=== PATIENT | female | born 1970 | race African-American/Black ===

== ENCOUNTER 2016-09-30 11:14 | Emergency (ER) | payer MEDICAID ==
[2016-09-30 11:42] VITALS: BP 130/88
[2016-09-30] MEDS ORDERED: Take Home: Oseltamivir 75 MG Cap, 2 Cap Pack PO ONE (12:25)
--- NOTE | 2016-10-11 07:56 | ER ---
Date of Service: 09/30/2016 SUBJECTIVE: Donn presents to the emergency room with complaints of cough, sinus, rhinorrhea, and chest congestion. The patient states that she has been ill for approximately the past 48 hours. She states that she has not experienced any rash. She states that she has felt hot and cold, but states that she has not been checking her temperature. The patient denies any nausea or vomiting. PAST MEDICAL HISTORY: Hypertension. MEDICATIONS: 1. Carvedilol. 2. Cozaar. 3. Acetaminophen. ALLERGIES: NSAIDs. REVIEW OF SYSTEMS: General: Positive for chills, but has not been checking her temperature. HEENT: Positive for rhinorrhea and congestion. Respiratory: Complains of mild shortness of breath and cough. Cardiac: Denies any substernal chest pain. GI: No nausea, vomiting, or diarrhea. No melena, hematochezia, or hematemesis. : Denies any dysuria. Musculoskeletal: No myalgias or arthralgias. Neurologic: No fainting, blackouts, or lightheadedness. PHYSICAL EXAMINATION: General: This is a 46-year-old female patient in no acute distress. Vital Signs: Blood pressure is 130/88, pulse rate is 84, temperature is 36.6, respiratory rate is 16, O2 saturations 99%. Skin: Warm, pink, and dry. HEENT: Head is normocephalic, atraumatic. Mouth, oral mucosa is moist. Ears, TMs are clear. No erythema or exudate noted in the hypopharynx. Neck: Supple. No masses. There is no lymphadenopathy. Lungs: She does have some crackles noted throughout. They are also mildly diminished. Heart: Regular rate and rhythm. Abdomen: Soft, nontender. There is no hepatosplenomegaly noted. There are no masses noted. Extremities: Without edema. LABORATORY DATA: Influenza A and B swabs were obtained. She was positive for influenza A. Her group A strep was negative as was her culture. ASSESSMENT: Group B influenza. PLAN: The patient will be discharged. Tamiflu 75 mg twice daily for 5 days. Tylenol and ibuprofen for discomfort. Drink plenty of fluids. I advised her to stay off work until 24 hours after her last fever. She should also minimize contact with friends and family as well. All questions were answered. MWK: 10/10/2016 16:26:56 MODL: 10/10/2016 23:50:38 /[id number]
== END 2016-09-30 12:40 | disposition home or self-care (01) ==
LOC: VM.ED 11:14
DX: J10.1 Influenza due to other identified influenza virus with other respiratory manifestations (principal); I10 Essential (primary) hypertension; Z79.899 Other long term (current) drug therapy
CPT/HCPCS: 71020; 87081; 87804; 87880; 99284

== ENCOUNTER 2017-06-08 13:40 | Emergency (ER) | payer MEDICAID ==
--- NOTE | 2017-06-08 13:46 | EDM.PDOC ---
ED HPI GENERAL MEDICAL PROBLEM - General Chief Complaint: ENT Problem Stated Complaint: Sinus Pressure; headache; dry cough; runny nose Time Seen by Provider: 06/08/17 13:42 Source of Information: Reports: Patient, RN, RN Notes Reviewed History Limitations: Reports: No Limitations - History of Present Illness INITIAL COMMENTS - FREE TEXT/NARRATIVE: Patient presents the emergency room at [facility] complaining of sinus pressure and pain, dry nonproductive cough, and low-grade fever. The patient states that her symptoms began about 3 days ago. 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 The patient has tried [id number] cold and flu medication without any relief. The patient denies any eye or ear symptomatology. The patient complains of pain around the maxillary and ethmoid sinus areas. The patient denies any sore throat. The patient states she is trying to stay well-hydrated with good by mouth fluid intake. The patient denies any nausea vomiting or diarrhea. The patient is unsure if she has been exposed to influenza. The patient denies any chest pain. The patient feels somewhat short of breath but she states it's nothing unusual. The patient denies any focal neurological deficits. The patient states that she is draining a green discharge from the nose. Onset Date: 06/05/17 Headache Pain Score (Numeric/FACES): 7 - Related Data Allergies Allergy/AdvReac Type Severity Reaction Status Date / Time NSAIDS (Non-Steroidal Allergy Unknown Other Verified 06/08/17 14:09 Anti-Inflamma Home Meds: Home Meds Acetaminophen [Acetaminophen Extra Strength] 500 mg PO Q6H PRN 09/30/16 [History ] Carvedilol 25 mg PO DAILY 09/30/16 [History] Losartan [Cozaar] 100 mg PO DAILY 09/30/16 [History] methylPREDNISolone [Medrol] 4 mg PO ASDIRECTED 6 Days #1 dosepk 06/08/17 [Rx] Past Medical History HEENT History: Reports: Other (See Below) Other HEENT History: esophageal cancer Cardiovascular History: Reports: Hypertension Other Cardiovascular History: patient states that the cardiac medications are related to her esphageal disease Oncologic (Cancer) History: Reports: Esophageal - Past Surgical History HEENT Surgical History: Reports: Other (See Below) Oncologic Surgical History: Reports: Other (See Below) Social & Family History - Tobacco Use Smoking Status *Q: Never Smoker - Recreational Drug Use Recreational Drug Use: No ED ROS ENT - Review of Systems Review Of Systems: See Below Constitutional: Reports: Fever, Decreased Appetite. Denies: Chills, Weakness HEENT: Reports: Nose Pain, Rhinitis, Sinus Problem. Denies: Ear Pain, Eye Pain , Throat Pain, Throat Swelling Respiratory: Reports: Shortness of Breath, Cough. Denies: Wheezing, Sputum Cardiovascular: Denies: Chest Pain, Palpitations GI/Abdominal: Denies: Abdominal Pain, Nausea, Vomiting Skin: Reports: No Symptoms Neurological: Reports: No Symptoms, Headache. Denies: Dizziness ED EXAM, ENT - Physical Exam Exam: See Below Exam Limited By: No Limitations General Appearance: Alert, No Apparent Distress Eye Exam: Bilateral Eye: Normal Inspection, PERRL Ears: Normal External Exam, Normal Canal, Normal TMs Nose: Nasal Discharge, Nasal Tenderness, Other (sinus tenderness to percussion over the bilateral maxiallary sinus regions) Mouth/Throat: Normal Inspection, Normal Oropharynx Neck: Supple Course - Vital Signs Last Recorded V/S: Last Vital Signs Temp 37.2 C 06/08/17 13:45 Pulse 61 06/08/17 13:45 Resp 16 06/08/17 13:45 BP 169/91 H 06/08/17 13:45 Pulse Ox 99 06/08/17 13:45 - Orders/Labs/Meds Orders: Active Orders 24 hr Category Date Time Status Chest 2V [CR] Stat Exams 06/08/17 13:57 Taken Triamcinolone Acetonide [Kenalog-40] Med 06/08/17 14:46 Once 80 mg IM ONETIME ONE Labs: Laboratory Tests 06/08/17 06/08/17 Range/Units 14:24 14:24 WBC 7.7 (4.0-10.0) x10^3/uL RBC 4.29 (4.00-5.50) x10^6/uL Hgb 11.5 L (12.0-16.0) g/dL Hct 35.4 (33.0-47.0) % MCV 82.5 (78.0-93.0) fL MCH 26.8 (26.0-32.0) pg MCHC 32.5 (32.0-36.0) g/dL RDW Coeff of Clint 15.6 H (10.0-15.0) % Plt Count 205 (130-400) x10^3/uL Neut % (Auto) 52.8 (50.0-80.0) % Lymph % (Auto) 34.7 (25.0-50.0) % [place] % (Auto) 11.4 H (2.0-11.0) % Eos % (Auto) 0.8 (0.0-4.0) % Baso % (Auto) 0.3 (0.2-1.2) % Sodium 140 (136-145) mmol/L Potassium 3.7 (3.5-5.1) mmol/L Chloride 105 (98-107) mmol/L Carbon Dioxide 21 (21-32) mmol/L BUN 10 (7-18) mg/dL Creatinine 1.0 (0.55-1.02) mg/dL Est Cr Clr Drug Dosing 64.60 mL/min Estimated GFR (MDRD) > 60 Glucose 92 (74-106) mg/dL Calcium 9.2 (8.5-10.1) mg/dL - Radiology Interpretation Free Text/Narrative:: CXR: No new findings; see scanned document in EMR Departure - Departure Time of Disposition: 14:46 Disposition: Home, Self-Care 01 Condition: Good Clinical Impression: Acute pansinusitis, unspecified Qualifiers: Recurrence: non-recurrent Qualified Code(s): J01.40 - Acute pansinusitis, unspecified Upper respiratory infection Qualifiers: URI type: unspecified URI Qualified Code(s): J06.9 - Acute upper respiratory infection, unspecified Rhinitis Qualifiers: Chronicity: acute Allergic rhinitis trigger: unspecified Allergic rhinitis seasonality: non-seasonal - Discharge Information Prescriptions: methylPREDNISolone [Medrol] 4 mg PO ASDIRECTED 6 Days #1 dosepk Instructions: Sinus Headache, Sinusitis, Adult Referrals: Shaniqua Abernathy DO [Primary Care Provider] - Forms: ED Department Discharge Additional Instructions: 1. Stay well hydrated and rest 2. Take medications for the full coarse, even if you are feeling better 3. Blood tests and xray were normal today 4. May alternate Tylenol/Advil as needed 5. Avoid using any over the counter products while on the steroids 6. No antibiotics are used to treat your symptoms 7. See your Primary as symptoms warrant 8. Call with any questions/concerns - Problem List Review Problem List Initiated/Reviewed/Updated: Yes - My Orders Last 24 Hours: My Active Orders 06/08/17 13:57 Chest 2V [CR] Stat 06/08/17 14:46 Triamcinolone Acetonide [Kenalog-40] 80 mg IM ONETIME ONE - Assessment/Plan Last 24 Hours: My Active Orders 06/08/17 13:57 Chest 2V [CR] Stat 06/08/17 14:46 Triamcinolone Acetonide [Kenalog-40] 80 mg IM ONETIME ONE
[2017-06-08 14:14] VITALS: BP 169/91
[2017-06-08 14:43] LABS: CHLORIDE,CL 105 mmol/L (98-107); SODIUM,NA 140 mmol/L (136-145)
[2017-06-08] MEDS ORDERED: Triamcinolone Acetonide 40 MG/ML 1 ML MDV IM ONE (14:46)
== END 2017-06-08 15:00 | disposition home or self-care (01) ==
LOC: VM.ED 13:40
DX: J01.40 Acute pansinusitis, unspecified (principal); J06.9 Acute upper respiratory infection, unspecified; J00 Acute nasopharyngitis [common cold]; I10 Essential (primary) hypertension; Z79.899 Other long term (current) drug therapy; Z88.8 Allergy status to other drugs, medicaments and biological substances
CPT/HCPCS: 36415; 71046; 80048; 85025; 87804; 96372; 99283; J3301

== ENCOUNTER 2018-08-16 10:56 | Emergency (ER) | payer MEDICAID ==
[2018-08-16] MEDS ORDERED: Sodium Chloride 0.9% 10 ML Syringe FLUSH PRN (11:34)
[2018-08-16] MEDS ORDERED: Ondansetron 4 MG/2 ML SDV IVPUSH ONE (11:36)
[2018-08-16] MEDS ORDERED: Lactated Ringers 1,000 ML IV ONE (11:36)
[2018-08-16 12:46] LABS: ANION GAP 14.5 mmol/L (10-20); CHLORIDE,CL 108 mmol/L (98-107); SODIUM,NA 142 mmol/L (136-145)
--- NOTE | 2018-08-16 12:57 | EDM.PDOC ---
ED HPI GENERAL MEDICAL PROBLEM - General Chief Complaint: Gastrointestinal Problem Stated Complaint: DIARRHEA COUGHING VOMITING Time Seen by Provider: 08/16/18 11:25 Source of Information: Reports: Patient History Limitations: Reports: No Limitations - History of Present Illness INITIAL COMMENTS - FREE TEXT/NARRATIVE: Pt. presents to ER with complaints of nausea, vomiting, or diarrhea. She states that the symptoms started several days ago. No fever or chills. No chest pain or shortness of breath. Pt. states that she has been taking zofran but has not been taking any immodium. No focal abdominal pain. Denies any dysuria. No cough, congestion, or rhinorrhea. No melena or hematochezia. She states that she has been around several coworkers and family members who have recently been ill. Onset: Today Onset Date: 08/16/18 Location: Reports: Abdomen Associated Symptoms: Reports: Nausea/Vomiting, Other (diarrhea) Abdominal Pain Score (Numeric/FACES): 7 - Related Data Allergies Allergy/AdvReac Type Severity Reaction Status Date / Time NSAIDS (Non-Steroidal Allergy Unknown Other Verified 08/16/18 11:32 Anti-Inflamma aspirin Allergy Other Verified 08/16/18 11:32 Home Meds: Home Meds Carvedilol 25 mg PO BIDMEALS 09/30/16 [History] Losartan [Cozaar] 100 mg PO DAILY 09/30/16 [History] Zolpidem Tartrate [Ambien] 10 mg PO BEDTIME PRN 03/26/18 [History] Past Medical History HEENT History: Reports: Other (See Below) Other HEENT History: esophageal cancer Cardiovascular History: Reports: Hypertension Other Cardiovascular History: patient states that the cardiac medications are related to her esphageal disease Gastrointestinal History: Reports: GI Bleed Oncologic (Cancer) History: Reports: Esophageal - Past Surgical History HEENT Surgical History: Reports: Other (See Below) Oncologic Surgical History: Reports: Other (See Below) Social & Family History - Tobacco Use Smoking Status *Q: Never Smoker - Recreational Drug Use Recreational Drug Use: No ED ROS GENERAL - Review of Systems Review Of Systems: See Below Constitutional: Reports: No Symptoms HEENT: Reports: No Symptoms Respiratory: Reports: No Symptoms Cardiovascular: Reports: No Symptoms Endocrine: Reports: No Symptoms GI/Abdominal: Reports: Diarrhea, Nausea. Denies: Black Stool, Bloody Stool, Constipation, Vomiting : Reports: No Symptoms Musculoskeletal: Reports: No Symptoms Skin: Reports: No Symptoms Neurological: Reports: No Symptoms Psychiatric: Reports: No Symptoms Hematologic/Lymphatic: Reports: No Symptoms Immunologic: Reports: No Symptoms ED EXAM, GENERAL - Physical Exam Exam: See Below Exam Limited By: No Limitations General Appearance: Alert, WD/WN, No Apparent Distress Throat/Mouth: Normal Inspection, Normal Lips, Normal Teeth, Normal Gums, Normal Oropharynx, Normal Voice, No Airway Compromise Head: Atraumatic, Normocephalic Neck: Normal Inspection, Supple, Non-Tender, Full Range of Motion Respiratory/Chest: No Respiratory Distress, Lungs Clear, Normal Breath Sounds, No Accessory Muscle Use, Chest Non-Tender Cardiovascular: Normal Peripheral Pulses, Regular Rate, Rhythm, No Edema, No Gallop, No JVD, No Murmur, No Rub GI/Abdominal: Normal Bowel Sounds, Soft, Non-Tender, No Organomegaly, No Distention, No Mass (Female) Exam: Deferred Rectal (Female) Exam: Deferred Back Exam: Normal Inspection, Full Range of Motion Extremities: Normal Inspection, Normal Range of Motion, Non-Tender, Normal Capillary Refill, No Pedal Edema Neurological: Alert, Oriented, CN II-XII Intact, Normal Cognition, Normal Gait, Normal Reflexes, No Motor/Sensory Deficits Psychiatric: Normal Affect, Normal Mood Skin Exam: Warm, Dry, Intact, Normal Color, No Rash Lymphatic: No Adenopathy Course - Vital Signs Last Recorded V/S: Last Vital Signs Temp 36.6 C 08/16/18 11:25 Pulse 89 08/16/18 11:25 Resp 16 08/16/18 11:25 BP 148/97 H 08/16/18 11:25 Pulse Ox 98 08/16/18 11:25 - Orders/Labs/Meds Orders: Active Orders 24 hr Category Date Time Status Sodium Chloride 0.9% [Saline Flush] Med 08/16/18 11:34 Active 10 ml FLUSH ASDIRECTED PRN Peripheral IV Insertion Adult [OM.PC] Routine Oth 08/16/18 11:35 Ordered Medication Orders Sodium Chloride (Saline Flush) 10 ml FLUSH ASDIRECTED PRN PRN Reason: Keep Vein Open Labs: Laboratory Tests 08/16/18 08/16/18 08/16/18 Range/Units 12:00 12:20 12:20 WBC 7.6 (4.0-10.0) x10^3/uL RBC 4.67 (4.00-5.50) x10^6/uL Hgb 14.5 D (12.0-16.0) g/dL Hct 42.6 (33.0-47.0) % MCV 91.2 D (78.0-93.0) fL MCH 31.0 (26.0-32.0) pg MCHC 34.0 (32.0-36.0) g/dL RDW Coeff of Clint 13.1 (10.0-15.0) % Plt Count 113 L D (130-400) x10^3/uL Neut % (Auto) 55.6 (50.0-80.0) % Lymph % (Auto) 35.1 (25.0-50.0) % [place] % (Auto) 8.7 (2.0-11.0) % Eos % (Auto) 0.5 (0.0-4.0) % Baso % (Auto) 0.1 L (0.2-1.2) % PT 10.4 (9.6-11.4) SEC INR 1.0 L (2.0-3.5) Sodium 142 (136-145) mmol/L Potassium 3.5 (3.5-5.1) mmol/L Chloride 108 H (98-107) mmol/L Carbon Dioxide 23 (21-32) mmol/L Anion Gap 14.5 (10-20) mmol/L BUN 6 L (7-18) mg/dL Creatinine 0.8 (0.55-1.02) mg/dL Est Cr Clr Drug Dosing 79.91 mL/min Estimated GFR (MDRD) > 60 Glucose 83 (74-106) mg/dL Lactic Acid (0.4-2.0) mmol/L Calcium 8.5 (8.5-10.1) mg/dL Corrected Calcium 9.22 (8.5-10.1) mg/dL Total Bilirubin 0.3 (0.2-1.0) mg/dL AST 17 (15-37) U/L ALT 22 (14-59) U/L Alkaline Phosphatase 51 (46-116) U/L C-Reactive Protein < 0.2 (<=0.9) mg/dL Total Protein 6.6 (6.4-8.2) g/dL Albumin 3.1 L (3.4-5.0) g/dL Globulin 3.5 Albumin/Globulin Ratio 0.89 Amylase 54 (25-115) U/L Lipase 144 (73-393) U/L 08/16/18 Range/Units 12:20 WBC (4.0-10.0) x10^3/uL RBC (4.00-5.50) x10^6/uL Hgb (12.0-16.0) g/dL Hct (33.0-47.0) % MCV (78.0-93.0) fL MCH (26.0-32.0) pg MCHC (32.0-36.0) g/dL RDW Coeff of Clint (10.0-15.0) % Plt Count (130-400) x10^3/uL Neut % (Auto) (50.0-80.0) % Lymph % (Auto) (25.0-50.0) % [place] % (Auto) (2.0-11.0) % Eos % (Auto) (0.0-4.0) % Baso % (Auto) (0.2-1.2) % PT (9.6-11.4) SEC INR (2.0-3.5) Sodium (136-145) mmol/L Potassium (3.5-5.1) mmol/L Chloride (98-107) mmol/L Carbon Dioxide (21-32) mmol/L Anion Gap (10-20) mmol/L BUN (7-18) mg/dL Creatinine (0.55-1.02) mg/dL Est Cr Clr Drug Dosing mL/min Estimated GFR (MDRD) Glucose (74-106) mg/dL Lactic Acid 1.4 (0.4-2.0) mmol/L Calcium (8.5-10.1) mg/dL Corrected Calcium (8.5-10.1) mg/dL Total Bilirubin (0.2-1.0) mg/dL AST (15-37) U/L ALT (14-59) U/L Alkaline Phosphatase (46-116) U/L C-Reactive Protein (<=0.9) mg/dL Total Protein (6.4-8.2) g/dL Albumin (3.4-5.0) g/dL Globulin Albumin/Globulin Ratio Amylase (25-115) U/L Lipase (73-393) U/L Meds: Medications Generic Name Dose Route Start Last Admin Trade Name Chelsea PRN Reason Stop Dose Admin Sodium Chloride 10 ml 08/16/18 11:34 Saline Flush FLUSH ASDIRECTED PRN Keep Vein Open Discontinued Medications Generic Name Dose Route Start Last Admin Trade Name Frealexia PRN Reason Stop Dose Admin Lactated Ringer's 1,000 mls @ 1,000 mls/hr 08/16/18 11:36 08/16/18 12:04 Ringers, Lactated IV 08/16/18 12:35 1,000 mls/hr ONETIME ONE Administration Ondansetron HCl 4 mg 08/16/18 11:36 08/16/18 12:07 Zofran IVPUSH 08/16/18 11:37 4 mg ONETIME ONE Administration - Re-Assessments/Exams Free Text/Narrative Re-Assessment/Exam: Pt. was given 1000ml lactated ringers and zofran 4mg IV for nausea/vomiting. She remained stable in my care in ER. Departure - Departure Time of Disposition: 12:58 Disposition: Home, Self-Care 01 Condition: Good Clinical Impression: Gastroenteritis - Discharge Information Instructions: Viral Gastroenteritis, Adult Referrals: PCP,Unknown [Primary Care Provider] - Forms: ED Department Discharge Additional Instructions: Continue with Zofran as needed for nausea. Immodium over the counter as needed for nausea. Drink plenty of fluids. Tylenol and ibuprofen for fever/discomfort. - My Orders Last 24 Hours: My Active Orders 08/16/18 11:34 Sodium Chloride 0.9% [Saline Flush] 10 ml FLUSH ASDIRECTED PRN 08/16/18 11:35 Peripheral IV Insertion Adult [OM.PC] Routine - Assessment/Plan Last 24 Hours: My Active Orders 08/16/18 11:34 Sodium Chloride 0.9% [Saline Flush] 10 ml FLUSH ASDIRECTED PRN 08/16/18 11:35 Peripheral IV Insertion Adult [OM.PC] Routine Plan: Continue with Zofran as needed for nausea. Immodium over the counter as needed for nausea. Drink plenty of fluids. Tylenol and ibuprofen for fever/discomfort.
[2018-08-17 11:10] VITALS: BP 136/78
== END 2018-08-16 13:30 | disposition home or self-care (01) ==
LOC: VM.ED 10:56
DX: K52.9 Noninfective gastroenteritis and colitis, unspecified (principal); I10 Essential (primary) hypertension; Z79.899 Other long term (current) drug therapy; Z88.8 Allergy status to other drugs, medicaments and biological substances; Z88.6 Allergy status to analgesic agent
CPT/HCPCS: 36415; 80053; 82150; 83605; 83690; 85025; 85610; 86140; 96361; 96374; 99283; J2405; J7120

== ENCOUNTER 2018-09-23 08:41 | Emergency (ER) | payer MEDICAID ==
[2018-09-23 09:13] VITALS: BP 166/106
[2018-09-23 10:06] LABS: CHLORIDE,CL 105 mmol/L (98-107); SODIUM,NA 140 mmol/L (136-145)
[2018-09-23 10:08] LABS: ANION GAP 12.8 mmol/L (10-20)
--- NOTE | 2018-09-23 10:14 | CR ---
[id number] RAD/RAD Chest PA And Lateral EXAM: FRONTAL AND LATERAL CHEST INDICATION: Shortness of breath, family history of hypertrophic cardiomyopathy. COMPARISON: June 08, 2017. DISCUSSION: Heart is mildly enlarged without evidence of congestive heart failure. Stable mild to moderate elevation of the left hemidiaphragm with associated left base volume loss. Surgical clips overlie the right hilum. IMPRESSION: 1. Cardiomegaly without evidence of congestive heart failure. Nilay Cronin MD 09/23/18 1012 Thank you for allowing us to participate in the care of your patient.
--- NOTE | 2018-09-23 10:15 | EDM.PDOC ---
ED HPI GENERAL MEDICAL PROBLEM - General Chief Complaint: Respiratory Problem Stated Complaint: SHORTNESS BREATH Time Seen by Provider: 09/23/18 09:08 Source of Information: Reports: Patient History Limitations: Reports: No Limitations - History of Present Illness INITIAL COMMENTS - FREE TEXT/NARRATIVE: Patient comes in with complaints of cough since Sunday. No fevers, no chills. States she feels like she is choking. No chest pain, no SOB. Denies any abdominal pain, nausea, vomiting, blood in her urine or her stool. Does take losartan and carvedilol for blood pressure and has a familial history of hypertrophic cardiomyopathy, though she herself states she does not have this. She has been having regular echocardiograms every 3 years. Last was 2 years ago as stated by the patient. Onset: Today, Sudden Duration: Intermittent Severity: Moderate Improves with: Reports: None Worsens with: Reports: Breathing Associated Symptoms: Reports: Cough Headache Pain Score (Numeric/FACES): 6 - Related Data Allergies Allergy/AdvReac Type Severity Reaction Status Date / Time NSAIDS (Non-Steroidal Allergy Unknown Other Verified 09/23/18 09:04 Anti-Inflamma aspirin Allergy Other Verified 09/23/18 09:04 Home Meds: Home Meds Carvedilol 25 mg PO BIDMEALS 09/30/16 [History] Losartan [Cozaar] 100 mg PO DAILY 09/30/16 [History] Zolpidem Tartrate [Ambien] 10 mg PO BEDTIME PRN 03/26/18 [History] Past Medical History HEENT History: Reports: Other (See Below) Other HEENT History: esophageal cancer Cardiovascular History: Reports: Hypertension Other Cardiovascular History: patient states that the cardiac medications are related to her esphageal disease Gastrointestinal History: Reports: GI Bleed Oncologic (Cancer) History: Reports: Esophageal - Past Surgical History HEENT Surgical History: Reports: Other (See Below) Oncologic Surgical History: Reports: Other (See Below) Social & Family History - Tobacco Use Smoking Status *Q: Never Smoker - Alcohol Use Days Per Week of Alcohol Use: 1 Number of Drinks Per Day: 2 Total Drinks Per Week: 2 - Recreational Drug Use Recreational Drug Use: No ED ROS GENERAL - Review of Systems Review Of Systems: See Below Constitutional: Reports: No Symptoms HEENT: Reports: Other (feels like she is "choking") Respiratory: Reports: Cough Cardiovascular: Reports: No Symptoms Endocrine: Reports: No Symptoms GI/Abdominal: Reports: No Symptoms : Reports: No Symptoms Musculoskeletal: Reports: No Symptoms Skin: Reports: No Symptoms Neurological: Reports: No Symptoms Psychiatric: Reports: No Symptoms Hematologic/Lymphatic: Reports: No Symptoms Immunologic: Reports: No Symptoms ED EXAM, GENERAL - Physical Exam Exam: See Below Exam Limited By: No Limitations General Appearance: Alert, WD/WN, No Apparent Distress Eye Exam: Bilateral Eye: EOMI, Normal Inspection Ears: Normal External Exam, Normal Canal, Hearing Grossly Normal, Normal TMs Nose: Normal Inspection, Normal Mucosa, No Blood Throat/Mouth: Normal Inspection, Normal Lips, Normal Teeth, Normal Gums, Normal Oropharynx, Normal Voice, No Airway Compromise Head: Atraumatic, Normocephalic Neck: Lymphadenopathy (L), Lymphadenopathy (R) Respiratory/Chest: No Respiratory Distress, No Accessory Muscle Use, Rales ( left lower) Cardiovascular: Normal Peripheral Pulses, Regular Rate, Rhythm, No Edema, No Gallop, No JVD, No Murmur, No Rub GI/Abdominal: Normal Bowel Sounds, Soft, Non-Tender, No Organomegaly, No Distention, No Abnormal Bruit, No Mass Back Exam: Normal Inspection, Full Range of Motion, NT Extremities: Normal Inspection, Normal Range of Motion, Non-Tender, Normal Capillary Refill, No Pedal Edema Neurological: Alert, Oriented, CN II-XII Intact, Normal Cognition, Normal Gait, Normal Reflexes, No Motor/Sensory Deficits Psychiatric: Normal Affect, Normal Mood Skin Exam: Warm, Dry, Intact, Normal Color, No Rash Lymphatic: Adenopathy (bilateral anterior cerviacl lymphadenopathy) Course - Vital Signs Last Recorded V/S: Last Vital Signs Temp 36.3 C 09/23/18 08:50 Pulse 87 09/23/18 08:50 Resp 18 09/23/18 08:50 BP 166/106 H 09/23/18 08:50 Pulse Ox 97 09/23/18 08:50 - Orders/Labs/Meds Orders: Active Orders 24 hr Category Date Time Status EKG 12 Lead [EKG Documentation Completion] [RC] STAT Care 09/23/18 09:14 Active RT Aerosol Therapy [RC] ASDIRECTED Care 09/23/18 10:23 Active CULTURE STREP A CONFIRMATION [RM] Stat Lab 09/23/18 09:20 Results STREP SCRN A RAPID W CULT CONF [RM] Stat Lab 09/23/18 09:20 Results Labs: Laboratory Tests 09/23/18 09/23/18 09/23/18 Range/Units 09:32 09:32 09:32 WBC 5.0 (4.0-10.0) x10^3/uL RBC 4.47 (4.00-5.50) x10^6/uL Hgb 14.3 (12.0-16.0) g/dL Hct 42.6 (33.0-47.0) % MCV 95.3 H D (78.0-93.0) fL MCH 32.0 (26.0-32.0) pg MCHC 33.6 (32.0-36.0) g/dL RDW Coeff of Clint 12.8 (10.0-15.0) % Plt Count 164 (130-400) x10^3/uL Add Manual Diff Yes Neutrophils % (Manual) 54 (50-80) % Band Neutrophils % 5 (0-6) % Lymphocytes % (Manual) 32 (25-50) % Monocytes % (Manual) 6 (2-11) % Eosinophils % (Manual) 3 (0-4) % Platelet Estimate Adequate PT 9.9 L (10.0-12.8) SEC INR 0.9 L (2.0-3.5) Sodium 140 (136-145) mmol/L Potassium 3.8 (3.5-5.1) mmol/L Chloride 105 (98-107) mmol/L Carbon Dioxide 26 (21-32) mmol/L Anion Gap 12.8 (10-20) mmol/L BUN 9 (7-18) mg/dL Creatinine 0.8 (0.55-1.02) mg/dL Est Cr Clr Drug Dosing 82.26 mL/min Estimated GFR (MDRD) > 60 Glucose 87 (74-106) mg/dL Calcium 8.6 (8.5-10.1) mg/dL Corrected Calcium 8.84 (8.5-10.1) mg/dL Total Bilirubin 0.3 (0.2-1.0) mg/dL AST 28 (15-37) U/L ALT 28 (14-59) U/L Alkaline Phosphatase 67 (46-116) U/L Troponin I 0.039 (<=0.056) ng/mL NT-Pro-B Natriuret Pep 304 H (<=125) pg/mL Total Protein 7.7 (6.4-8.2) g/dL Albumin 3.7 (3.4-5.0) g/dL Globulin 4.0 Albumin/Globulin Ratio 0.93 Meds: Medications Discontinued Medications Generic Name Dose Route Start Last Admin Trade Name Freq PRN Reason Stop Dose Admin Albuterol/Ipratropium 3 ml 09/23/18 10:23 Duoneb 3.0-0.5 Mg/3 Ml NEB 09/23/18 10:24 ONETIME ONE Dexamethasone 8 mg 09/23/18 10:23 Dexamethasone IM 09/23/18 10:24 ONETIME ONE - Radiology Interpretation Free Text/Narrative:: X-ray and labwork does not indicate acute cardiac event Departure - Departure Time of Disposition: 11:01 Disposition: Home, Self-Care 01 Condition: Good Clinical Impression: Upper respiratory infection Qualifiers: URI type: unspecified URI Qualified Code(s): J06.9 - Acute upper respiratory infection, unspecified - Discharge Information *PRESCRIPTION DRUG MONITORING PROGRAM REVIEWED*: Not Applicable *COPY OF PRESCRIPTION DRUG MONITORING REPORT IN PATIENT LEEROY: Not Applicable Instructions: Upper Respiratory Infection, Adult, [id number] Referrals: Shaniqua Abernathy, [Primary Care Provider] - Forms: ED Department Discharge Additional Instructions: Plan 1. Take the medrol dose pack as directed on the packaging 2. Negative influenza and strep. We do culture these and if positive we will let you know. 3. Your Pro-BNP which is a heart failure indicator was slightly elevated at 304. Let your primary doctor know this number. 4. Your x-ray did show an enlargement of your heart. These images will be sent to them for their records and availability. 5. Your labwork and tests at this time do not indicate a bacterial infection. As such antibiotics are not indicated at this time. 6. Make sure to return or go to the clinic if your symptoms worsen or last longer than 7-10 days. 7. Please call with any questions or concerns ED Communication - ED Communication Date/Time Date: 09/23/18 Time Called: 10:59 - Discussed Case With (1) Discussed Case With (1): Other (Dr. Bui was consulted regarding EKG t-wave inversions. These were present on 2015 EKG they have on file. Not acute.) - Problem List & Annotations (1) Upper respiratory infection SNOMED Code(s): 45996362 Code(s): J06.9 - ACUTE UPPER RESPIRATORY INFECTION, UNSPECIFIED Status: Acute Priority: Low Current Visit: Yes Qualifiers: URI type: unspecified URI Qualified Code(s): J06.9 - Acute upper respiratory infection, unspecified - Problem List Review Problem List Initiated/Reviewed/Updated: Yes - My Orders Last 24 Hours: My Active Orders 09/23/18 09:14 EKG 12 Lead [EKG Documentation Completion] [RC] STAT 09/23/18 09:20 CULTURE STREP A CONFIRMATION [RM] Stat STREP SCRN A RAPID W CULT CONF [RM] Stat 09/23/18 10:23 RT Aerosol Therapy [RC] ASDIRECTED - Assessment/Plan Last 24 Hours: My Active Orders 09/23/18 09:14 EKG 12 Lead [EKG Documentation Completion] [RC] STAT 09/23/18 09:20 CULTURE STREP A CONFIRMATION [RM] Stat STREP SCRN A RAPID W CULT CONF [RM] Stat 09/23/18 10:23 RT Aerosol Therapy [RC] ASDIRECTED Assessment:: viral upper respiratory infection Plan: Plan 1. Take the medrol dose pack as directed on the packaging 2. Negative influenza and strep. We do culture these and if positive we will let you know. 3. Your Pro-BNP which is a heart failure indicator was slightly elevated at 304. Let your primary doctor know this number. 4. Your x-ray did show an enlargement of your heart. These images will be sent to them for their records and availability. 5. Your labwork and tests at this time do not indicate a bacterial infection. As such antibiotics are not indicated at this time. 6. Make sure to return or go to the clinic if your symptoms worsen or last longer than 7-10 days. 7. Please call with any questions or concerns
[2018-09-23] MEDS ORDERED: Albuterol/Ipratropium 3.0-0.5 MG/3 ML Neb Soln NEB ONE (10:23)
[2018-09-23] MEDS ORDERED: Dexamethasone 4 MG/ML SDV IM ONE (10:23)
== END 2018-09-23 11:08 | disposition home or self-care (01) ==
LOC: VM.ED 08:41
DX: J06.9 Acute upper respiratory infection, unspecified (principal); I10 Essential (primary) hypertension; Z79.899 Other long term (current) drug therapy
CPT/HCPCS: 36415; 71046; 80053; 83880; 84484; 85025; 85610; 87081; 87804; 87880; 93005; 94640; 96372; 99284; J1100; J7620-GY

== ENCOUNTER 2019-02-19 04:34 | Emergency (ER) | payer MEDICAID ==
[2019-02-19 04:46] VITALS: BP 162/106; PULSE 72
[2019-02-19] MEDS ORDERED: Sodium Chloride 0.9% 1,000 ML IV ONE (05:14)
[2019-02-19] MEDS ORDERED: Ketorolac 30 MG/ML SDV IVPUSH ONE (05:14)
[2019-02-19] MEDS ORDERED: Sodium Chloride 0.9% 10 ML Syringe FLUSH PRN (05:17)
[2019-02-19] MEDS: Ondansetron 4 MG/2 ML SDV IVPUSH ONE ×2 (05:18→06:08)
--- NOTE | 2019-02-19 05:22 | EDM.PDOC ---
ED HPI GENERAL MEDICAL PROBLEM - General Chief Complaint: General Stated Complaint: Dizzy, Vomiting, Heart Racing Time Seen by Provider: 02/19/19 05:09 Source of Information: Reports: Patient, RN History Limitations: Reports: No Limitations - History of Present Illness INITIAL COMMENTS - FREE TEXT/NARRATIVE: Patient presents to the ED at [facility] for the evaluation of a headache, nausea, dizziness, and vomiting. She states her symptoms started yesterday. She is not sure how my times she vomited. No recent travel. No change with any medications. No close contacts with similar symptoms. No chest pain or SOB. Denies any URI symptoms. She states she is trying to stay well hydrated with good PO fluid intake. She states she felt at one point, her heart "was racing very fast." No history of any cardiac problems outside of HTN. No pulmonary history. Patient does not smoke. She denies any fevers or chills. No focal neurological problems. Patient states her headache is similar to previous headaches. Onset Date: 02/18/19 Headache Pain Score (Numeric/FACES): 10 - Related Data Allergies Allergy/AdvReac Type Severity Reaction Status Date / Time NSAIDS (Non-Steroidal Allergy Unknown Other Verified 02/19/19 04:43 Anti-Inflamma aspirin Allergy Other Verified 02/19/19 04:42 Home Meds: Home Meds Carvedilol 25 mg PO BIDMEALS 09/30/16 [History] Losartan [Cozaar] 100 mg PO DAILY 09/30/16 [History] Zolpidem Tartrate [Ambien] 10 mg PO BEDTIME PRN 03/26/18 [History] Ondansetron HCl [Zofran] 4 mg SL Q8H PRN #15 tablet 02/19/19 [Rx] Past Medical History HEENT History: Reports: Other (See Below) Other HEENT History: esophageal cancer Cardiovascular History: Reports: Hypertension Other Cardiovascular History: patient states that the cardiac medications are related to her esphageal disease Gastrointestinal History: Reports: GI Bleed Oncologic (Cancer) History: Reports: Esophageal - Past Surgical History HEENT Surgical History: Reports: Other (See Below) Oncologic Surgical History: Reports: Other (See Below) Social & Family History - Tobacco Use Smoking Status *Q: Never Smoker - Recreational Drug Use Recreational Drug Use: No ED ROS GENERAL - Review of Systems Review Of Systems: See Below Constitutional: Denies: Fever, Chills Respiratory: Denies: Shortness of Breath, Cough Cardiovascular: Reports: Other ("felt like heart was racing"). Denies: Chest Pain, Palpitations GI/Abdominal: Reports: Nausea, Vomiting. Denies: Abdominal Pain, Diarrhea Skin: Reports: No Symptoms Neurological: Reports: Dizziness, Headache. Denies: Numbness, Paresthesia, Tingling, Weakness ED EXAM, GENERAL - Physical Exam Exam: See Below Exam Limited By: No Limitations General Appearance: Alert, WD/WN, No Apparent Distress Eye Exam: Bilateral Eye: Normal Fundi, PERRL Head: Atraumatic, Normocephalic Respiratory/Chest: No Respiratory Distress, Lungs Clear, Normal Breath Sounds Cardiovascular: Normal Peripheral Pulses, Regular Rate, Rhythm Peripheral Pulses: 2+: Radial (L), Radial (R) GI/Abdominal: Soft, Non-Tender, Abnormal Bowel Sounds (Hypoactive) Neurological: Alert, Oriented, Normal Cognition Skin Exam: Warm, Dry, Intact EKG INTERPRETATION EKG Date: 02/19/19 Time: 04:59 Rhythm: NSR Rate (Beats/Min): 72 [place]: Normal P-Wave: Present QRS: Normal ST-T: Normal QT: Normal NH/PQ Interval: 0.15 Comparison: No Change EKG Interpretation Comments: 1. NSR 2. Probably left atrial enlargement 3. Abnormal T, consider ischemia 4. Old ST elevation, consider anterior injury Course - Vital Signs Last Recorded V/S: Last Vital Signs Temp 96.2 F 02/19/19 04:45 Pulse 72 02/19/19 04:45 Resp 14 02/19/19 04:45 BP 162/106 H 02/19/19 04:45 Pulse Ox 98 02/19/19 04:45 - Orders/Labs/Meds Orders: Active Orders 24 hr Category Date Time Status EKG 12 Lead [EKG Documentation Completion] [RC] STAT Care 02/19/19 05:16 Active Sodium Chloride 0.9% [Normal Saline] 1,000 ml Med 02/19/19 05:14 Active IV ONETIME Sodium Chloride 0.9% [Saline Flush] Med 02/19/19 05:17 Active 10 ml FLUSH ASDIRECTED PRN Peripheral IV Insertion Adult [OM.PC] Routine Oth 02/19/19 05:17 Ordered Medication Orders Sodium Chloride (Normal Saline) 1,000 mls @ 999 mls/hr IV ONETIME ONE Stop: 02/19/19 06:14 Last Admin: 02/19/19 05:18 Dose: 999 mls/hr Sodium Chloride (Saline Flush) 10 ml FLUSH ASDIRECTED PRN PRN Reason: Keep Vein Open Meds: Medications Generic Name Dose Route Start Last Admin Trade Name Freq PRN Reason Stop Dose Admin Sodium Chloride 1,000 mls @ 999 mls/hr 02/19/19 05:14 02/19/19 05:18 Normal Saline IV 02/19/19 06:14 999 mls/hr ONETIME ONE Administration Sodium Chloride 10 ml 02/19/19 05:17 Saline Flush FLUSH ASDIRECTED PRN Keep Vein Open Discontinued Medications Generic Name Dose Route Start Last Admin Trade Name Freq PRN Reason Stop Dose Admin Ketorolac Tromethamine 30 mg 02/19/19 05:14 Toradol IVPUSH 02/19/19 05:15 ONETIME ONE Ondansetron HCl 4 mg 02/19/19 05:14 02/19/19 05:18 Zofran IVPUSH 02/19/19 05:15 4 mg ONETIME ONE Administration Ondansetron HCl 4 mg 02/19/19 06:03 Zofran IM 02/19/19 06:04 ONETIME ONE Departure - Departure Time of Disposition: 06:10 Disposition: Home, Self-Care 01 Condition: Good Clinical Impression: Dizziness Headache Qualifiers: Headache type: unspecified Headache chronicity pattern: acute headache Intractability: not intractable Qualified Code(s): R51 - Headache Nausea & vomiting Qualifiers: Vomiting type: bilious vomiting Qualified Code(s): R11.14 - Bilious vomiting - Discharge Information *PRESCRIPTION DRUG MONITORING PROGRAM REVIEWED*: Not Applicable *COPY OF PRESCRIPTION DRUG MONITORING REPORT IN PATIENT LEEROY: Not Applicable Prescriptions: Ondansetron HCl [Zofran] 4 mg SL Q8H PRN #15 tablet PRN Reason: Nausea/Vomiting Instructions: Nausea and Vomiting, Adult, Dizziness, General Headache Without Cause, [id number] Referrals: Shaniqua Abernathy DO [Primary Care Provider] - Forms: ED Department Discharge Additional Instructions: 1. Stay well hydrated and rest 2. No work for today 3. Take nausea pills as needed 4. See your PCP as symptoms warrant - Problem List Review Problem List Initiated/Reviewed/Updated: Yes - My Orders Last 24 Hours: My Active Orders 02/19/19 05:14 Sodium Chloride 0.9% [Normal Saline] 1,000 ml IV ONETIME 02/19/19 05:16 EKG 12 Lead [EKG Documentation Completion] [RC] STAT 02/19/19 05:17 Sodium Chloride 0.9% [Saline Flush] 10 ml FLUSH ASDIRECTED PRN Peripheral IV Insertion Adult [OM.PC] Routine - Assessment/Plan Last 24 Hours: My Active Orders 02/19/19 05:14 Sodium Chloride 0.9% [Normal Saline] 1,000 ml IV ONETIME 02/19/19 05:16 EKG 12 Lead [EKG Documentation Completion] [RC] STAT 02/19/19 05:17 Sodium Chloride 0.9% [Saline Flush] 10 ml FLUSH ASDIRECTED PRN Peripheral IV Insertion Adult [OM.PC] Routine Assessment:: Dizziness Headache Nausea/Vomiting Plan: Assessment findings discussed with the patient. Unable to start IVF due to vein problems. Zofran given IM. Patient feeling much better after injection. No red flags on assessment. No medical necessity to any labs or imaging studies. Discussed with patient to rest, stay hydrated and see her PCP as symptoms warrant. Patient agreed with POC.
[2019-02-19] MEDS ORDERED: Ondansetron 4 MG/2 ML SDV IM ONE (06:03)
== END 2019-02-19 06:30 | disposition home or self-care (01) ==
LOC: VM.ED 04:34
DX: R51 Headache (principal); R42 Dizziness and giddiness; R11.14 Bilious vomiting; I10 Essential (primary) hypertension; Z88.6 Allergy status to analgesic agent
CPT/HCPCS: 93005; 96372; 99283; J2405; J7030

== ENCOUNTER 2019-05-20 23:30 | Emergency (ER) | payer MEDICAID ==
[2019-05-21] MEDS ORDERED: Ondansetron 4 MG/2 ML SDV IVPUSH ONE (00:07)
[2019-05-21] MEDS ORDERED: Sodium Chloride 0.9% 10 ML Syringe FLUSH PRN (00:07)
[2019-05-21] MEDS ORDERED: Sodium Chloride 0.9% 1,000 ML IV ONE (00:07)
--- NOTE | 2019-05-21 00:08 | EDM.PDOC ---
ED HPI GENERAL MEDICAL PROBLEM - General Time Seen by Provider: 05/21/19 00:02 Source of Information: Reports: Patient - History of Present Illness INITIAL COMMENTS - FREE TEXT/NARRATIVE: Donn presents to the ER with complaints of nausea/vomiting/diarrhea that started 2 days ago. Patient has also had a mild cough. She did take a po Zofran at home at 8 pm, but it didn't help much. Drinking some fluids, but unable to eat anything. Daughter ill at home with similar sx. - Related Data Allergies Allergy/AdvReac Type Severity Reaction Status Date / Time NSAIDS (Non-Steroidal Allergy Unknown Other Verified 05/21/19 01:31 Anti-Inflamma aspirin Allergy Other Verified 05/21/19 01:31 Home Meds: Home Meds Losartan [Cozaar] 100 mg PO DAILY 09/30/16 [History] carvediloL [Carvedilol] 25 mg PO BIDMEALS 09/30/16 [History] Zolpidem Tartrate [Ambien] 10 mg PO BEDTIME PRN 03/26/18 [History] Ondansetron HCl [Zofran] 4 mg SL Q8H PRN #15 tablet 02/19/19 [Rx] Promethazine [Phenergan] 25 mg PO Q6H PRN #15 tab 05/21/19 [Rx] Past Medical History HEENT History: Reports: Other (See Below) Other HEENT History: esophageal cancer Cardiovascular History: Reports: Hypertension Other Cardiovascular History: patient states that the cardiac medications are related to her esphageal disease Gastrointestinal History: Reports: GI Bleed Oncologic (Cancer) History: Reports: Esophageal - Past Surgical History HEENT Surgical History: Reports: Other (See Below) Oncologic Surgical History: Reports: Other (See Below) Review of Systems - Review of Systems Review Of Systems: See Below Constitutional: Reports: No Symptoms Eyes: Reports: No Symptoms Ears: Reports: No Symptoms Nose: Reports: No Symptoms Mouth/Throat: Reports: No Symptoms Respiratory: Reports: No Symptoms Cardiovascular: Reports: No Symptoms GI/Abdominal: Reports: Abdominal Pain, Decreased Appetite, Diarrhea, Nausea, Vomiting Genitourinary: Reports: No Symptoms Musculoskeletal: Reports: No Symptoms Skin: Reports: No Symptoms Neurological: Reports: No Symptoms Psychiatric: Reports: No Symptoms ED EXAM, GENERAL - Physical Exam Exam: See Below General Appearance: Alert, WD/WN, No Apparent Distress, Other (Adult female, appears to not feel well.) Ears: Normal Canal, Hearing Grossly Normal, Normal TMs Nose: Normal Inspection, Normal Mucosa Throat/Mouth: Normal Lips, Normal Teeth, Normal Oropharynx, Normal Voice, No Airway Compromise Head: Atraumatic, Normocephalic Neck: Supple, Non-Tender Respiratory/Chest: No Respiratory Distress, Lungs Clear, Normal Breath Sounds, Chest Non-Tender Cardiovascular: Regular Rate, Rhythm, No Edema, No Murmur GI/Abdominal: Normal Bowel Sounds, Soft, Non-Tender, No Distention (Female) Exam: Normal External Exam, Deferred Rectal (Female) Exam: Deferred Back Exam: Normal Inspection. No: CVA Tenderness (L), CVA Tenderness (R) Extremities: No Pedal Edema, Normal Capillary Refill Neurological: Alert, Oriented, CN II-XII Intact, No Motor/Sensory Deficits Psychiatric: Normal Affect, Normal Mood Skin Exam: Warm, Dry, Intact, Normal Color, No Rash Lymphatic: No Adenopathy Course - Vital Signs Text/Narrative:: The patient was seen by the [facility]. Labs were done. She was given a liter of NS and Zofran 4mg IVP. 0115 Lab results reviewed, pt advised.Patient feeling a bit nauseated yet and now having a headache. Will given Compazine 10mg IVP and Toradol 30 mg IVP. Last Recorded V/S: Last Vital Signs Temp Pulse 87 05/21/19 01:42 Resp BP 158/94 H 05/21/19 01:42 Pulse Ox - Orders/Labs/Meds Orders: Active Orders 24 hr Category Date Time Status Sodium Chloride 0.9% [Saline Flush] Med 05/21/19 00:07 Active 10 ml FLUSH ASDIRECTED PRN Saline Lock Insert [OM.PC] Stat Oth 05/21/19 00:07 Ordered Medication Orders Sodium Chloride (Saline Flush) 10 ml FLUSH ASDIRECTED PRN PRN Reason: Keep Vein Open Last Admin: 05/21/19 00:35 Dose: 10 ml Labs: Laboratory Tests 05/21/19 05/21/19 05/21/19 Range/Units 00:26 00:26 01:02 WBC 5.8 (4.0-10.0) x10^3/uL RBC 4.29 (4.00-5.50) x10^6/uL Hgb 13.1 (12.0-16.0) g/dL Hct 38.7 (33.0-47.0) % MCV 90.2 D (78.0-93.0) fL MCH 30.5 (26.0-32.0) pg MCHC 33.9 (32.0-36.0) g/dL RDW Coeff of Clint 13.8 (10.0-15.0) % Plt Count 205 (130-400) x10^3/uL Neut % (Auto) 39.8 L (50.0-80.0) % Lymph % (Auto) 47.9 (25.0-50.0) % [place] % (Auto) 10.6 (2.0-11.0) % Eos % (Auto) 1.4 (0.0-4.0) % Baso % (Auto) 0.3 (0.2-1.2) % Sodium 141 (136-145) mmol/L Potassium 4.0 (3.5-5.1) mmol/L Chloride 106 (98-107) mmol/L Carbon Dioxide 23 (21-32) mmol/L Anion Gap 16.0 (10-20) mmol/L BUN 10 (7-18) mg/dL Creatinine 0.7 (0.55-1.02) mg/dL Est Cr Clr Drug Dosing TNP Estimated GFR (MDRD) > 60 Glucose 94 (74-106) mg/dL Calcium 8.9 (8.5-10.1) mg/dL Corrected Calcium 9.78 (8.5-10.1) mg/dL Total Bilirubin 0.3 (0.2-1.0) mg/dL AST 20 (15-37) U/L ALT 20 (14-59) U/L Alkaline Phosphatase 59 (46-116) U/L Total Protein 7.0 (6.4-8.2) g/dL Albumin 2.9 L (3.4-5.0) g/dL Globulin 4.1 Albumin/Globulin Ratio 0.71 Urine Color Yellow (YELLOW) Urine Appearance Slightly cloudy H (CLEAR) Urine pH 6.5 (5.0-8.0) Ur Specific [place] >=1.030 Urine Protein Negative (NEGATIVE) mg/dL Urine Glucose (UA) Negative (NEGATIVE) mg/dL Urine Ketones Negative (NEGATIVE) mg/dL Urine Occult Blood Moderate H (NEGATIVE) Urine Nitrite Negative (NEGATIVE) Urine Bilirubin Negative (NEGATIVE) Urine Urobilinogen 0.2 (0.2) EU/dL Ur Leukocyte Esterase Negative (NEGATIVE) Urine RBC 5-10 H (NOT SEEN) /HPF Urine WBC 0-5 (NOT SEEN) /HPF Ur Squamous Epith Cells Rare (NEGATIVE) /HPF Urine Bacteria Rare (NEGATIVE) /HPF Urine Mucus Not seen (NEGATIVE) /LPF Meds: Medications Generic Name Dose Route Start Last Admin Trade Name Freq PRN Reason Stop Dose Admin Sodium Chloride 10 ml 05/21/19 00:07 05/21/19 00:35 Saline Flush FLUSH 10 ml ASDIRECTED PRN Administration Keep Vein Open Discontinued Medications Generic Name Dose Route Start Last Admin Trade Name Freq PRN Reason Stop Dose Admin Acetaminophen 650 mg 05/21/19 01:28 05/21/19 01:39 Tylenol PO 05/21/19 01:29 Not Given NOW ONE Sodium Chloride 1,000 mls @ 999 mls/hr 05/21/19 00:07 05/21/19 00:35 Normal Saline IV 05/21/19 01:07 999 mls/hr ONETIME ONE Administration Ketorolac Tromethamine 30 mg 05/21/19 01:19 Toradol IVPUSH 05/21/19 01:20 ONETIME ONE Ondansetron HCl 4 mg 05/21/19 00:07 05/21/19 00:35 Zofran IVPUSH 05/21/19 00:08 4 mg ONETIME ONE Administration Prochlorperazine Edisylate 10 mg 05/21/19 01:19 05/21/19 01:37 Compazine IV 05/21/19 01:20 10 mg ONETIME ONE Administration Promethazine HCl 1 packet 05/21/19 01:22 05/21/19 01:38 Take Home: Promethazine 25 Mg, 4 Tab Pack PO 05/21/19 01:23 1 packet ONETIME ONE Administration Departure - Departure Time of Disposition: 02:01 Disposition: Home, Self-Care 01 Preliminary Cause of *Q: Cardiac Arrest Condition: Good Clinical Impression: Diarrhea Nausea & vomiting Qualifiers: Vomiting type: bilious vomiting Qualified Code(s): R11.14 - Bilious vomiting - Discharge Information *PRESCRIPTION DRUG MONITORING PROGRAM REVIEWED*: Not Applicable *COPY OF PRESCRIPTION DRUG MONITORING REPORT IN PATIENT LEEROY: Not Applicable Prescriptions: Promethazine [Phenergan] 25 mg PO Q6H PRN #15 tab PRN Reason: Nausea Instructions: Diarrhea, Adult, Food Choices to Help Relieve Diarrhea, Adult, Nausea and Vomiting, Adult Referrals: Shaniqua Abernathy DO [Primary Care Provider] - Additional Instructions: -Phenergan 25mg oral every 6 hours as needed for nausea #4(ER) #15(Rx) -Clear liquids and advance diet able -Rest -If symptoms not improving in next week, follow up with your PCP -Return to the ER with any concerns Sepsis Event Note - Focused Exam Vital Signs: Vital Signs Pulse BP 05/21/19 01:42 87 158/94 H Date Exam was Performed: 05/21/19 Time Exam was Performed: 02:01 - My Orders Last 24 Hours: My Active Orders 05/21/19 00:07 Sodium Chloride 0.9% [Saline Flush] 10 ml FLUSH ASDIRECTED PRN Saline Lock Insert [OM.PC] Stat - Assessment/Plan Last 24 Hours: My Active Orders 05/21/19 00:07 Sodium Chloride 0.9% [Saline Flush] 10 ml FLUSH ASDIRECTED PRN Saline Lock Insert [OM.PC] Stat
[2019-05-21 00:52] LABS: CHLORIDE,CL 106 mmol/L (98-107); SODIUM,NA 141 mmol/L (136-145)
[2019-05-21] MEDS ORDERED: Prochlorperazine 10 MG/2 ML SDV IV ONE (01:19)
[2019-05-21] MEDS ORDERED: Ketorolac 30 MG/ML SDV IVPUSH ONE (01:19)
[2019-05-21] MEDS ORDERED: Take Home: Promethazine 25 MG, 4 Tab Pack PO ONE (01:22)
[2019-05-21] MEDS: Acetaminophen 325 MG Tab PO ONE ×2 (01:37→01:39)
[2019-05-21 01:44] VITALS: BP 158/94; PULSE 87
== END 2019-05-21 02:10 | disposition home or self-care (01) ==
LOC: VM.ED 23:30
DX: R11.14 Bilious vomiting (principal); R19.7 Diarrhea, unspecified; I10 Essential (primary) hypertension; Z79.899 Other long term (current) drug therapy; Z88.6 Allergy status to analgesic agent
CPT/HCPCS: 36415; 80053; 81001; 85025; 87804; 87804-59; 96361; 96374; 96375; 99284-25; A9270-GY; J0780; J2405; J7030

== ENCOUNTER 2019-06-07 08:15 | Emergency (ER) | payer MEDICAID ==
[2019-06-07 08:33] VITALS: BP 124/88; PULSE 72
--- NOTE | 2019-06-07 08:47 | EDM.PDOC ---
ED HPI GENERAL MEDICAL PROBLEM - General Chief Complaint: Neurological Problem Stated Complaint: LEFT LEG/FOOT NUMB Time Seen by Provider: 06/07/19 08:30 Source of Information: Reports: Patient History Limitations: Reports: No Limitations - History of Present Illness INITIAL COMMENTS - FREE TEXT/NARRATIVE: Patient comes into the emergency department complaining of left lower extremity numbness. Patient states this has been going on now for approximately 4 days. She was in to see her primary care provider who did run labs however she still waiting to hear back regarding those labs. Patient states that she has numbness and tingling from mid calf lower left extremity with no pain, bruising, redness , swelling, or back discomfort. Patient states that she is able to bear weight and complete all range of motion without difficulty but states it is a numbing and tingling sensation. She states it is better in the morning. When she wakes up she has no numbness or tingling however as the day progresses she begins having more numbness and tingling in that lower extremity. Patient denies any injuries or illnesses. Onset: Sudden Quality: Reports: Other Improves with: Reports: None Worsens with: Reports: None Associated Symptoms: Reports: No Other Symptoms Treatments [employer]: Reports: Acetaminophen - Related Data Allergies Allergy/AdvReac Type Severity Reaction Status Date / Time NSAIDS (Non-Steroidal Allergy Unknown Other Verified 05/21/19 01:31 Anti-Inflamma aspirin Allergy Other Verified 05/21/19 01:31 Home Meds: Home Meds Losartan [Cozaar] 100 mg PO DAILY 09/30/16 [History] carvediloL [Carvedilol] 25 mg PO BIDMEALS 09/30/16 [History] Zolpidem Tartrate [Ambien] 10 mg PO BEDTIME PRN 03/26/18 [History] Ondansetron HCl [Zofran] 4 mg SL Q8H PRN #15 tablet 02/19/19 [Rx] Promethazine [Phenergan] 25 mg PO Q6H PRN #15 tab 05/21/19 [Rx] Past Medical History HEENT History: Reports: Other (See Below) Other HEENT History: esophageal cancer Cardiovascular History: Reports: Hypertension Other Cardiovascular History: patient states that the cardiac medications are related to her esphageal disease Gastrointestinal History: Reports: GI Bleed Oncologic (Cancer) History: Reports: Esophageal - Past Surgical History HEENT Surgical History: Reports: Other (See Below) Oncologic Surgical History: Reports: Other (See Below) ED ROS GENERAL - Review of Systems Review Of Systems: Comprehensive ROS is negative, except as noted in HPI. Constitutional: Reports: No Symptoms HEENT: Reports: No Symptoms Respiratory: Reports: No Symptoms Cardiovascular: Reports: No Symptoms Endocrine: Reports: No Symptoms GI/Abdominal: Reports: No Symptoms : Reports: No Symptoms Musculoskeletal: Reports: No Symptoms Skin: Reports: No Symptoms Neurological: Reports: No Symptoms Psychiatric: Reports: No Symptoms Hematologic/Lymphatic: Reports: No Symptoms ED EXAM, GENERAL - Physical Exam Exam: See Below Exam Limited By: No Limitations General Appearance: Alert, WD/WN, No Apparent Distress Eye Exam: Bilateral Eye: EOMI, PERRL Head: Atraumatic, Normocephalic Neck: Normal Inspection, Supple, Non-Tender, Full Range of Motion Respiratory/Chest: No Respiratory Distress, Lungs Clear, Normal Breath Sounds, No Accessory Muscle Use, Chest Non-Tender Cardiovascular: Normal Peripheral Pulses, Regular Rate, Rhythm, No Edema, No Gallop, No JVD, No Murmur, No Rub Peripheral Pulses: 4+: Dorsalis Pedis (L), Dorsalis Pedis (R) Back Exam: Normal Inspection, Full Range of Motion Extremities: Normal Inspection, Normal Range of Motion, Non-Tender, No Pedal Edema, Normal Capillary Refill Neurological: Alert, Oriented, CN II-XII Intact, Normal Gait, No Motor/Sensory Deficits Psychiatric: Normal Affect, Normal Mood Course - Vital Signs Last Recorded V/S: Last Vital Signs Temp 35.9 C 06/07/19 08:30 Pulse 72 06/07/19 08:30 Resp 16 06/07/19 08:30 BP 124/88 06/07/19 08:30 Pulse Ox 99 06/07/19 08:30 Departure - Departure Time of Disposition: 08:50 Disposition: Home, Self-Care 01 Condition: Good Clinical Impression: Neuropathy - Discharge Information *PRESCRIPTION DRUG MONITORING PROGRAM REVIEWED*: Not Applicable *COPY OF PRESCRIPTION DRUG MONITORING REPORT IN PATIENT LEEROY: Not Applicable Instructions: Peripheral Neuropathy Referrals: Shaniqua Abernathy DO [Primary Care Provider] - Forms: ED Department Discharge Additional Instructions: 1. rest 2. increase your water intake 3. Can use Tylenol to help with any inflammation or pain 4. Can also use ice and heat to help with any swelling in the lower lumbar that could be causing the numbness and tingling in the left lower extremity 5. Follow-up with your primary care provider early next week regarding lab results and potential further imaging studies 6. Activity and diet as tolerated 7. Call with any questions or concerns Sepsis Event Note - Evaluation Sepsis Screening Result: No Definite Risk - Focused Exam Vital Signs: Vital Signs Temp Pulse Resp BP Pulse Ox 06/07/19 08:30 35.9 C 72 16 124/88 99 Date Exam was Performed: 06/07/19 Time Exam was Performed: 08:42 - Assessment/Plan Assessment:: 1. Neuropathy Plan: 1. Patient just had labs completed on Sunday. Did discuss with the patient to follow up with her primary care provider on Sunday as originally planned to review her labs and further imaging if necessary 2. Did discuss that we could provide a short dose of steroids to help with anti- inflammatory or provide a gabapentin help with the neuropathic etiology type discomfort. Currently the patient does not want any further medication management. 3. Education regarding activity, diet, rest, ice, heat, [id number] modalities, and follow-up care was provided patient 4. All questions and concerns were addressed the patient prior to discharge
== END 2019-06-07 08:50 | disposition home or self-care (01) ==
LOC: VM.ED 08:15
DX: G62.9 Polyneuropathy, unspecified (principal); I10 Essential (primary) hypertension; Z88.6 Allergy status to analgesic agent
CPT/HCPCS: 99283